=== PATIENT | female | born 1995 | race Caucasian/White ===

== ENCOUNTER 2017-08-21 13:24 | Emergency (ER) | payer BC ==
[~2017-08-21] VITALS: Ht 154.9 cm; Wt 90.7 kg
[~2017-08-21 13:24] MED LIST: SULF-169
[2017-08-21 13:43] VITALS: BP 138/85
== END 2017-08-21 15:07 | disposition home or self-care (01) ==
LOC: ER 13:24
DX: M54.5 Low back pain (principal); M25.551 Pain in right hip; Z53.21 Procedure and treatment not carried out due to patient leaving prior to being seen by health care provider

== ENCOUNTER 2021-04-18 11:41 | Emergency (ER) | payer BC, MEDICAID ==
[~2021-04-18] VITALS: Ht 152.4 cm; Wt 86.2 kg
[2021-04-18 14:05] VITALS: BP 134/84
== END 2021-04-18 14:20 | disposition home or self-care (01) ==
LOC: ER 11:41
DX: F41.9 Anxiety disorder, unspecified (principal); F17.210 Nicotine dependence, cigarettes, uncomplicated; Z79.899 Other long term (current) drug therapy; Z20.822 Contact with and (suspected) exposure to COVID-19
CPT/HCPCS: 36415; 71045; 87426; 93005